=== PATIENT | female | born 1990 | race Caucasian/White ===

== ENCOUNTER 2016-03-05 13:12 | Emergency (ER) | payer OTHER ==
[2016-03-05 13:34] VITALS: BP 119/77
--- NOTE | 2016-03-05 13:53 | UC ---
Throat Pain/Nasal Ronal HPI - HPI Summary HPI Summary: complaint of dental pain -upper right jaw that started 3 days ago recently broke tooth 1 week ago pain in her tooth that radiates into her face started taking left over amoxicillin for 3 days which helped the pain but when she ran out pain returned taking ibuprofen and tylenol for pain without relief uses a lidocaine gel which worked for approx 30 minutes -complaint of cough that started 3 days ago nasal congestion productive cough denies sore throat, ear pain - taking ibuprofen without relief-hasn't needed inhaler during this illness - History of Current Complaint Chief Complaint: UCRespiratory Stated Complaint: COUGH,SINUSES,DENTAL COMPLAINT Time Seen by Provider: 03/05/16 13:13 Hx Obtained From: Patient Hx Last Menstrual Period: Feb - Allergies/Home Medications Allergies/Adverse Reactions: Allergies Allergy/AdvReac Type Severity Reaction Status Date / Time Bee Venom Allergy Anaphylatic Verified 03/05/16 13:34 Shock shrimp Allergy Anaphylatic Uncoded 03/05/16 13:34 Shock Home Medications: Home Medications Acetaminophen TAB* [Tylenol TAB*] 650 mg PO Q12HR PRN 03/05/16 [History Confirmed 03/05/16] PMH/Surg Hx/FS Hx/Imm Hx Previously Healthy: Yes Endocrine History Of: Denies: Diabetes Cardiovascular History Of: Denies: Cardiac Disorders Respiratory History Of: Reports: Asthma - Surgical History Surgical History: Yes Surgery Procedure, Year, and Place: right ankle with plates and screws 2013 - Family History Known Family History: Negative: Cardiac Disease, Hypertension, Diabetes - Social History Lives: With Family Alcohol Use: None Substance Use Type: None Smoking Status (MU): Never Smoked Tobacco Type: Cigarettes Amount Used/How Often: 3 cigarettes daily Review of Systems Constitutional: Negative Skin: Negative Eyes: Negative ENT: Dental Pain, Nasal Discharge Respiratory: Cough Cardiovascular: Negative Gastrointestinal: Negative Genitourinary: Negative Motor: Negative Neurovascular: Negative Musculoskeletal: Negative Neurological: Negative Psychological: Negative All Other Systems Reviewed And Are Negative: Yes Physical Exam Triage Information Reviewed: Yes Appearance: No Pain Distress, Well-Nourished Vital Signs: Initial Vital Signs Temp 98.6 F 03/05/16 13:22 Pulse 95 03/05/16 13:22 Resp 20 03/05/16 13:22 BP 119/77 03/05/16 13:22 Pulse Ox 98 03/05/16 13:22 Vital Signs Reviewed: Yes Eyes: Positive: Conjunctiva Clear ENT: Positive: Pharynx normal, Nasal congestion, TMs normal Dental: Positive: Dental Fracture @, Abscess @ - tooth 4 Neck: Positive: No Lymphadenopathy Respiratory: Positive: Lungs clear, Normal breath sounds, No respiratory distress Cardiovascular: Positive: RRR, No Murmur, Pulses Normal Abdomen Description: Positive: Nontender, Soft Bowel Sounds: Positive: Present Musculoskeletal: Positive: No Edema Neurological: Positive: Alert Psychological Exam: Normal Skin Exam: Normal Throat Pain/Nasal Course/Dx - Course Course Of Treatment: exam completed. will treat with antibioitcs nad narcotic pain medication d/t most of tooth is gone. followup with dentist - Differential Dx/Diagnosis Differential Diagnosis/HQI/PQRI: URI, Other - dental abscess Provider Diagnoses: dental abscess, fractured tooth, URI Discharge - Discharge Plan Condition: Stable Disposition: HOME Prescriptions: Amoxicillin/Clavulanate TAB* [Augmentin TAB 875*] 875 mg PO BID #20 tab oxyCODONE/Acetamin 5/325 MG* [Percocet 5/325 TAB*] 1 tab PO Q6H PRN #20 tab MDD 4 PRN Reason: Pain (Dental) Patient Education Materials: Acute Dental Trauma (ED), Upper Respiratory Infection (ED) Referrals: TREVIN Patten [Primary Care Provider] - Additional Instructions: Please call your dentist for followup and have your tooth removed start antibiotic as directed DENTAL ABSCESS What is a Dental Abscess? A dental abscess is an infection around the root of a tooth or in the gums or jawbone. The infection causes pus to collect, and a lump can appear. Dental abscesses often get their start when bacteria invade a decayed tooth; the decay may then travel to the gums or jawbone. Decay can also begin in the mouth when teeth are not brushed or flossed properly. Symptoms Might Include: In general, you'll start to have a fever, redness and swelling of the gums or cheek. If you have a lump it may feel hot. Other signs include tooth or mouth pain, a loose tooth, or not being able to close your mouth all the way. If the abscess spreads, your face, neck, or chest may swell. Treatment Recommendations: Rinse your mouth with warm water every hour or as needed to ease the pain. This will help draw the infection from the abscess. For pain, you may take non- prescription medicines such as acetaminophen (Tylenol) or ibuprofen (Motrin, Advil). To help ease the pain, do not chew on the sore side for at least 2 days; you may need to limit yourself to a liquid diet. Putting ice on your face over the affected area may also relieve the pain. Apply the ice for 10 to 20 minutes out of every hour. Do not leave the ice on for long periods or you can get frostbite. If the abscess is drained, there may be a small hole or drain. Keep the area free of food by rinsing with water after eating. You'll need to return or be seen by a dentist to have the drain removed. The healthcare provider may have prescribed an antibiotic medicine. The medicine should be taken until it is completely gone, even if you are feeling better. If you stop taking the medicine early, he infection may not be completely gone, and the medication may not work the next time. To prevent abscesses: [place] regularly with a toothbrush recommended by your dentist. Floss daily and use a fluoride mouthwash, toothpaste, tablets, or supplements as instructed by your dentist or dental hygienist. Reduce the amount of sugar in your diet. Call Your Doctor or Return Here IF: You have a high temperature Your pain becomes worse You have any new symptoms or problems that may be due to the medicine you are taking You have new or increased swelling in your face, jaw, cheek, eye, or neck You have any other new symptoms that worry you
== END 2016-03-05 14:26 | disposition home or self-care (01) ==
LOC: UCCORT 13:12
DX: K04.7 Periapical abscess without sinus (principal); S02.5XXA Fracture of tooth (traumatic), initial encounter for closed fracture; X58.XXXA Exposure to other specified factors, initial encounter; Y93.9 Activity, unspecified; Y92.9 Unspecified place or not applicable; J06.9 Acute upper respiratory infection, unspecified
CPT/HCPCS: 99212; G0463

== ENCOUNTER 2016-05-11 22:42 | Emergency (ER) | payer OTHER ==
[2016-05-11 22:48] VITALS: BP 155/83
[2016-05-11] MEDS ORDERED: oxyCODONE/Acetamin 5/325 MG* TAB PO ONE (23:24)
[2016-05-11] MEDS ORDERED: Penicillin VK TAB* 250 MG PO ONE (23:25)
[2016-05-11] MEDS ORDERED: Ketorolac INJ* 30 MG/ML 1 ML VIAL IM ONE (23:31)
--- NOTE | 2016-05-11 23:57 | ED ---
Throat Pain/Nasal Congestion - HPI Summary HPI Summary: 25F presents with dental pain today. She states that she broke her tooth while eating. The tooth is located on the upper right. She denies any swelling around the eye, pain with eye movement, fever, chest pain or SOB. She states she was suppose to have a root canal on the tooth in a month. She states she was on antibiotics for the tooth a week ago and took last dose two days ago. - History of Current Complaint Chief Complaint: EDDentalPain Time Seen by Provider: 05/11/16 23:14 - Allergies/Home Medications Allergies/Adverse Reactions: Allergies Allergy/AdvReac Type Severity Reaction Status Date / Time Bee Venom Allergy Anaphylatic Verified 05/11/16 22:48 Shock shrimp Allergy Anaphylatic Uncoded 05/11/16 22:48 Shock PMH/Surg Hx/FS Hx/Imm Hx Endocrine/Hematology History: Denies: Hx Diabetes Respiratory History: Reports: Hx Asthma - Surgical History Surgery Procedure, Year, and Place: right ankle with plates and screws 2013 Infectious Disease History: No Infectious Disease History: Denies: Traveled Outside the [place] in Last 30 Days - Family History Known Family History: Negative: Cardiac Disease, Hypertension, Diabetes - Social History Alcohol Use: None Substance Use Type: Reports: None Smoking Status (MU): Never Smoked Tobacco Type: Cigarettes Amount Used/How Often: 3 cigarettes daily Review of Systems Negative: Fever Positive: Dental Pain Negative: Chest Pain Negative: Shortness Of Breath All Other Systems Reviewed And Are Negative: Yes Physical Exam Triage Information Reviewed: Yes Vital Signs On Initial Exam: Initial Vitals Temp Pulse Resp BP Pulse Ox 97.4 F 96 15 155/83 100 05/11/16 22:43 05/11/16 22:43 05/11/16 22:43 05/11/16 22:43 05/11/16 22:43 Vital Signs Reviewed: Yes Appearance: Positive: Well-Appearing Skin: Positive: Warm, Dry Head/Face: Positive: Normal Head/Face Inspection Eyes: Positive: Normal, Conjunctiva Clear ENT: Positive: Normal ENT inspection, Pharynx normal, TMs normal Dental: Positive: Percussion Tenderness @ - 15, Gross Decay/Caries @ - 15. Negative: Abscess @, Bleeding Neck: Positive: Supple, Nontender, No Lymphadenopathy Respiratory/Lung Sounds: Positive: Clear to Auscultation, Breath Sounds Present Cardiovascular: Positive: Normal, RRR Procedures - Procedure Summary Procedure Summary: dental filling cleaned area, used cetacaine to numb, placed temporary filling in tooth 15, patient tolerated procedure well Diagnostics - Vital Signs Vital Signs Temp Pulse Resp BP Pulse Ox 05/11/16 22:43 97.4 F 96 15 155/83 100 - Laboratory Lab Statement: Any lab studies that have been ordered have been reviewed, and results considered in the medical decision making process. EENT Course/Dx - Course Course Of Treatment: 25F presents with dental pain today. states that broke tooth today. states is suppose to have root canal next month. discussed that could place a temporary filling in tooth and patient agrees. placed filling in tooth 16. patient tolerated procedure well. prescribed antibiotics to take for next 7 days and ibuprofen. told to follow up with dentist as soon as can. patient understands and agrees with plan - Differential Diagnoses Differential Diagnoses: Dental Abscess, Dental Caries, Fractured Tooth - Diagnoses Provider Diagnoses: Pain, dental Discharge - Discharge Plan Condition: Guarded Disposition: HOME Prescriptions: Ibuprofen TAB* [Motrin TAB* 800 MG] 800 mg PO Q6H #20 tab Penicillin VK TAB* [Penicillin VK 250 mg Tab*] 500 mg PO QID #27 tab Patient Education Materials: Toothache (ED) Referrals: TREVIN Patten [Primary Care Provider] - Additional Instructions: Take antibiotics: 4 times a day for 7 days, first dose given in ED Use ibuprofen every 6 hours Avoid hard, crunchy food until seen by dentist Dental filling is temporary and will fall out Follow up with dentist as soon as possible Return to ED if develop fever, shortness of breath, pain with eye movement or swelling around eye
== END 2016-05-12 00:51 | disposition home or self-care (01) ==
LOC: ED 22:42
DX: K08.89 Other specified disorders of teeth and supporting structures (principal); J45.909 Unspecified asthma, uncomplicated; F17.210 Nicotine dependence, cigarettes, uncomplicated
CPT/HCPCS: 96372; 99282; A9270-GY; J1885

== ENCOUNTER 2017-04-17 22:18 | Emergency (ER) | payer OTHER ==
[2017-04-17] MEDS ORDERED: Penicillin VK TAB* 250 MG PO ONE (22:51)
[2017-04-17] MEDS ORDERED: Ketorolac INJ* 60 MG/2 ML VIAL IM ONE (22:51)
--- NOTE | 2017-04-17 22:54 | ED ---
Throat Pain/Nasal Congestion - HPI Summary HPI Summary: 26 year female presents with dental pain for the past couple days. She has been taking Tylenol without relief. She has a dentist appointment on next Friday. She has history of old fractures and cavities of teeth. She denies any drainage from her teeth. She denies any swelling around her eyes. She denies any pain with eye movement. She denies any chest pain or shortness of breath. She denies any fevers. She is not currently on antibiotic. She has no medical conditions. - History of Current Complaint Chief Complaint: EDDentalPain Time Seen by Provider: 04/17/17 22:35 - Allergies/Home Medications Allergies/Adverse Reactions: Allergies Allergy/AdvReac Type Severity Reaction Status Date / Time morphine Allergy Rash And Verified 04/17/17 22:24 Itching MS Bee Venom [Bee Venom] Allergy Anaphylatic Verified 05/11/16 22:48 Shock shrimp Allergy Anaphylatic Uncoded 05/11/16 22:48 Shock PMH/Surg Hx/FS Hx/Imm Hx Endocrine/Hematology History: Denies: Hx Anticoagulant Therapy, Hx Blood Disorders, Hx Diabetes Respiratory History: Reports: Hx Asthma History: Reports: Other Problems/Disorders - multiple miscarriages Psychiatric History: Reports: Other Psychiatric Issues/Disorders - unknown etiology - follows w/ [facility] - Surgical History Surgery Procedure, Year, and Place: right ankle with plates and screws 2013 Infectious Disease History: No Infectious Disease History: Denies: Traveled Outside the [place] in Last 30 Days - Family History Known Family History: Negative: Cardiac Disease, Hypertension, Diabetes - Social History Alcohol Use: None Substance Use Type: Reports: None Smoking Status (MU): Never Smoked Tobacco Type: Cigarettes Amount Used/How Often: 3 cigarettes daily Review of Systems Negative: Fever Positive: Dental Pain Negative: Chest Pain Negative: Shortness Of Breath All Other Systems Reviewed And Are Negative: Yes Physical Exam Triage Information Reviewed: Yes Vital Signs On Initial Exam: Initial Vitals Temp Pulse Resp BP Pulse Ox 97.6 F 95 18 149/78 100 04/17/17 22:24 04/17/17 22:24 04/17/17 22:24 04/17/17 22:24 04/17/17 22:24 Vital Signs Reviewed: Yes Appearance: Positive: Well-Appearing Skin: Positive: Warm, Dry Head/Face: Positive: Normal Head/Face Inspection Eyes: Positive: Normal, EOMI, NICOLE, Conjunctiva Clear ENT: Positive: Normal ENT inspection, Pharynx normal, TMs normal Dental: Positive: Percussion Tenderness @ - 5 and 25, Gross Decay/Caries @ - throughout, Dental Fracture @ - throughout. Negative: Abscess @ Neck: Positive: Supple, Nontender, No Lymphadenopathy Respiratory/Lung Sounds: Positive: Clear to Auscultation, Breath Sounds Present Cardiovascular: Positive: Normal, RRR Musculoskeletal: Positive: Normal Neurological: Positive: Normal Psychiatric: Positive: Normal Diagnostics - Vital Signs Vital Signs Temp Pulse Resp BP Pulse Ox 04/17/17 22:24 97.6 F 95 18 149/78 100 - Laboratory Lab Statement: Any lab studies that have been ordered have been reviewed, and results considered in the medical decision making process. EENT Course/Dx - Course Course Of Treatment: 26 year female presents with dental pain for the past couple days. She has been taking Tylenol without relief. She has a dentist appointment on next Friday. She has history of old fractures and cavities of teeth. She denies any drainage from her teeth. She denies any swelling around her eyes. She denies any pain with eye movement. She denies any chest pain or shortness of breath. She denies any fevers. She is not currently on antibiotic. She has no medical conditions. On exam tenderness to 5 and 25. Will start on penicillin. Will give a prescription for ibuprofen. Patient understands and agrees the plan. - Differential Diagnoses Differential Diagnoses: Dental Abscess, Dental Caries, Fractured Tooth - Diagnoses Provider Diagnoses: Dental infection Discharge - Discharge Plan Condition: Good Disposition: HOME Prescriptions: Ibuprofen TAB* [Motrin TAB* 600 MG] 600 mg PO Q8H PRN #20 tab PRN Reason: Pain Penicillin VK TAB* [Penicillin VK 250 mg Tab*] 500 mg PO QID #27 tab Patient Education Materials: Toothache (ED) Referrals: TREVIN Patten [Primary Care Provider] - Additional Instructions: Take antibiotics: 4 times a day for 7 days, first dose given in ED Use ibuprofen every 6 hours Avoid hard, crunchy food until seen by dentist Follow up with dentist as soon as possible Return to ED if develop fever, shortness of breath, pain with eye movement or swelling around eye Images - Images Dental: 1 - pain 2 - pain
[2017-04-17 23:05] VITALS: BP 144/78
== END 2017-04-17 23:04 | disposition home or self-care (01) ==
LOC: ED 22:18
DX: K04.7 Periapical abscess without sinus (principal); F17.210 Nicotine dependence, cigarettes, uncomplicated; Z88.5 Allergy status to narcotic agent
CPT/HCPCS: 96372; 99282; A9270-GY; J1885

== ENCOUNTER 2018-06-03 19:27 | Emergency (ER) | payer OTHER ==
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
[2018-06-03] MEDS: NS 0.9% 1000 ML** 1,000 ML IV ONE (20:57)
[2018-06-03] MEDS: fentaNYL* 50 MCG/ML 2 ML VIAL (100 MCG VIAL) IV SLOW PU ONE (20:58)
[2018-06-03] MEDS: Metoclopramide IV* 5 MG/ML 2 ML VIAL IV ONE (20:59)
[2018-06-03] MEDS: diPHENhydraMINE IV* 50 MG in NS 0.9% 50 ML* 50 ML IVPB ONE (21:00)
[2018-06-03] MEDS: Ketorolac INJ* 30 MG/ML 1 ML VIAL IV PUSH ONE ×2 (21:36→23:02)
[2018-06-03 21:45] VITALS: BP 128/80
[2018-06-03 21:52] LABS: Hematocrit 38 % (33-41); Hemoglobin 12.6 g/dL (12.0-16.0); Mean Corpuscular HGB Conc 33 g/dL (31-36); Mean Corpuscular Hemoglobin 28 pg (27-31); Mean Corpuscular Volume 86 fL (80-97); Red Blood Count 4.44 10^6 /uL (3.70-4.87); Red Cell Distribution Width 15 % (10.5-15); White Blood Count 10.5 10^3/uL (3.5-10.8)
--- NOTE | 2018-06-03 21:54 | ED ---
Progress - Progress Note Progress Note: This patient was signed out from Dr. Lopez to Dr. Santamaria at 22:[address] and Abdomen/Pelvis CT. Brain CT impression: No acute intracranial abnormality. ED physician has reviewed this imaging report. CXR impression: No acute process. Pending official imaging report. Abdomen/pelvis CT impression: 1. No acute abnormality 2. 2.5 cm focus of right hepatic enhancement, indeterminate. Correlation with hepatic protocol MRI may be considered. ED physician has reviewed this imaging report. The patient will be discharged and is agreeable with this plan. Re-Evaluation - Re-Evaluation First Eval Re-Evaluation Time: 00:20 Change: Improved Comment: Discussed results. Patient is feeling better and ready for discharge. Course/Dx - Course Course Of Treatment: This patient was signed out from Dr. Lopez to Dr. Santamaria at 22:[address] and Abdomen/Pelvis CT. Brain CT impression: No acute intracranial abnormality. ED physician has reviewed this imaging report. CXR impression: No acute process. Pending official imaging report. Abdomen/ pelvis CT impression: 1. No acute abnormality. 2. 2.5 cm focus of right hepatic enhancement, indeterminate. Correlation with. hepatic protocol MRI may be considered. ED physician has reviewed this imaging report. The patient will be discharged and is agreeable with this plan. - Diagnoses Provider Diagnoses: Abdominal pain Discharge - Sign-Out/Discharge Documenting (check all that apply): Patient Departure - DC Patient Received Moderate/Deep Sedation with Procedure: No - Discharge Plan Condition: Stable Disposition: HOME Patient Education Materials: Abdominal Pain (ED) Referrals: [facility] [Outside] (1-3 days) Additional Instructions: PLEASE RETURN TO THE ED IMMEDIATELY FOR WORSENING OR CONCERNING SYMPTOMS - Attestation Statements Document Initiated by Scribe: Yes Documenting Scribe: Esteban Oconnell Provider For Whom Scribe is Documenting (Include Credential): Branden Santamaria MD Scribe Attestation: Esteban Coreas, scribed for Branden Santamaria MD on 06/04/18 at 0018. Status of Scribe Document: Ready
[2018-06-03 22:01] LABS: ALT 36 U/L (7-52); AST 21 U/L (13-39); Albumin 4.1 g/dL (3.2-5.2); Albumin/Globulin Ratio 1.4 (1-3); Alkaline Phosphatase 65 U/L (34-104); Anion Gap 8 mmol/L (2-11); BUN/Creatinine Ratio 19.3 (8-20); Blood Urea Nitrogen 11 mg/dL (6-24); C Reactive Protein 31.34 mg/L (<8.01); CO2 Carbon Dioxide 22 mmol/L (22-32); Calcium 8.5 mg/dL (8.6-10.3); Chloride 105 mmol/L (101-111); EGFR African American 151.7 (>60); EGFR Non-African American 125.4 (>60); Globulin 2.9 g/dL (2-4); Glucose 91 mg/dL (70-100); Potassium 3.6 mmol/L (3.5-5.0); Sodium 135 mmol/L (135-145)
[2018-06-03 22:07] LABS: HCG Pregnancy < 0.60 mIU/mL
[2018-06-03 22:10] LABS: Influenza A Molecular NEGATIVE (Negative); Influenza B Molecular NEGATIVE (Negative)
[2018-06-03 22:11] LABS: ABS Basophils 0 10^3/ul (0-0.2); ABS Eosinophils 0.1 10^3/ul (0-0.6); ABS Lymphocytes 0.8 10^3/ul (1.0-4.8); ABS Monocytes 0.6 10^3/ul (0-0.8); ABS Nucleated RBC 0 10^3/ul; Eosinophil % 0.5 %; Mean Platelet Volume 8.3 fL (7.4-10.4); Nucleated Red Blood Cells % 0; Platelet Count 209 10^3/uL (150-450)
[2018-06-03] MEDS: Iohexol 300* (CONTRAST) 10 ML SDV IV ONE (22:27)
== END 2018-06-04 00:22 | disposition home or self-care (01) ==
LOC: ED 19:27
DX: R07.9 Chest pain, unspecified (principal); R10.9 Unspecified abdominal pain; F17.210 Nicotine dependence, cigarettes, uncomplicated; Z88.5 Allergy status to narcotic agent
CPT/HCPCS: 36415; 70450; 71045; 74177; 80053; 83605; 83690; 84484; 84702; 85025; 85379; 86140; 93005; 96361; 96374; 96375; 99283; J1200; J1885; J2765; J3010; Q9967

== ENCOUNTER 2018-09-14 21:11 | Emergency (ER) | payer SELFPAY ==
[2018-09-14 21:31] VITALS: BP 128/95
--- NOTE | 2018-09-14 21:42 | UC ---
Lower Extremity/Ankle HPI - HPI Summary HPI Summary: Patient is a 27-year-old female who presents to the urgent care with a chief complaint of right ankle and right knee pain. The patient reports that if he tonight approximately 4 PM the patient fell on steps and since then the patient is having pain. The pain is 6-8 out of 10. Denies any nausea vomiting has no other complaints. Patient denies any trauma to the head or neck. The patient has her menstrual cycle today. - History of Current Complaint Chief Complaint: UCLowerExtremity Stated Complaint: KNEE INJURY AND SORE THROAT Time Seen by Provider: 09/14/18 21:23 Hx Obtained From: Patient Hx Last Menstrual Period: now ?: No Onset/Duration: Sudden Onset Pain Intensity: 8 - Allergies/Home Medications Allergies/Adverse Reactions: Allergies Allergy/AdvReac Type Severity Reaction Status Date / Time bee venom protein (honey bee) Allergy Anaphylatic Verified 09/14/18 21:32 Shock morphine Allergy Rash And Verified 09/14/18 21:32 Itching shrimp Allergy Anaphylatic Uncoded 09/14/18 21:32 Shock PMH/Surg Hx/FS Hx/Imm Hx Previously Healthy: Yes Other History Of: Negative For: Anticoagulant Therapy - Surgical History Surgical History: Yes Surgery Procedure, Year, and Place: right ankle with plates and screws 2013. tubal ligation 2018 - Family History Known Family History: Positive: Blood Disorder - blood clots Negative: Cardiac Disease, Hypertension, Diabetes - Social History Alcohol Use: Occasionally Substance Use Type: None Smoking Status (MU): Light Every Day Tobacco Smoker Type: Cigarettes Amount Used/How Often: 3 cigarettes daily Review of Systems All Other Systems Reviewed And Are Negative: Yes Constitutional: Positive: Negative Skin: Positive: Negative Eyes: Positive: Negative ENT: Positive: Negative Respiratory: Positive: Negative Cardiovascular: Positive: Negative Gastrointestinal: Positive: Negative Genitourinary: Positive: Negative Motor: Positive: Negative Neurovascular: Positive: Negative Musculoskeletal: Positive: Other: - Right ankle and right knee pain Neurological: Positive: Negative Psychological: Positive: Negative Is Patient Immunocompromised?: No Physical Exam - Summary Physical Exam Summary: VITAL SIGNS: Reviewed. GENERAL: Patient is a well developed and nourished female who is lying comfortably in the stretcher. Patient is not in any acute respiratory distress. HEAD AND FACE: No signs of trauma. No ecchymosis, hematomas or skull depressions. No sinus tenderness. EYES: PERRLA, EOMI x 2, No injected conjunctiva, no nystagmus. EARS: Hearing grossly intact. Ear canals and tympanic membranes are within normal limits. MOUTH: Oropharynx within normal limits. NECK: Supple, trachea is midline, no adenopathy, no JVD, no carotid bruit, no c- spine tenderness, neck with full ROM. CHEST: Symmetric, no tenderness at palpation LUNGS: Clear to auscultation bilaterally. No wheezing or crackles. CVS: Regular rate and rhythm, S1 and S2 present, no murmurs or gallops appreciated. ABDOMEN: Soft, non-tender. No signs of distention. No rebound no guarding, and no masses palpated. Bowel sounds are normal. EXTREMITIES: Right knee with no deformity, full range of motion, no ecchymosis, no hematomas. Right ankle. A surgical scar which is well-healed. Has is slight swelling in the right lateral malleolus. Decreased range of motion secondary to pain. Good pulses and good capillary refill. NEURO: Alert and oriented x 3. No acute neurological deficits. Speech is normal and follows commands. SKIN: Dry and warm Triage Information Reviewed: Yes Appearance: Well-Appearing Vital Signs: Initial Vital Signs Temp 99.4 F 09/14/18 21:23 Pulse 94 09/14/18 21:23 Resp 18 09/14/18 21:23 BP 128/95 09/14/18 21:23 Pulse Ox 98 09/14/18 21:23 Vital Signs Reviewed: Yes Lower Extremity Course/Dx - Course Course Of Treatment: X-ray of the knee impression: No acute fracture X-ray of the ankle and foot impression: No acute fracture. Screw migrational is noted. However I would place the patient in a Boot Camp for precautions and follow-up with orthopedics. Bear weight as tolerated. Ibuprofen for pain. His symptoms worsen return to the urgent care or go to the emergency department for further workup and management. - Differential Dx/Diagnosis Provider Diagnosis: Ankle pain, Knee pain Discharge - Sign-Out/Discharge Documenting (check all that apply): Patient Departure All imaging exams completed and their final reports reviewed: Yes - Discharge Plan Condition: Stable Disposition: HOME Referrals: [facility] [place] [facility] [Outside] No Primary Care Phys,NOPCP [Primary Care Provider] - Alberto Tavera MD [Medical Doctor] - Additional Instructions: Take medications as instructed Increase your fluid intake F/U with PCP in the next 2-3 days Return to the UC if symptoms worsen - Billing Disposition and Condition Condition: STABLE Disposition: Home
== END 2018-09-14 22:30 | disposition home or self-care (01) ==
LOC: UCEAST 21:11
DX: M25.571 Pain in right ankle and joints of right foot (principal); M25.561 Pain in right knee; F17.210 Nicotine dependence, cigarettes, uncomplicated; Z88.5 Allergy status to narcotic agent
CPT/HCPCS: 99211; G0463

== ENCOUNTER 2019-01-01 20:32 | Emergency (ER) | payer SELFPAY ==
[2019-01-01 21:20] VITALS: BP 110/71
--- NOTE | 2019-01-01 21:32 | UC ---
Pediatric Resp HPI - HPI Summary HPI Summary: Per mine analyst: "Rhinitis, congestion, vomiting, diarrhea x 1 wk." -here with her 2 sick sons w/ same sx. male friend is in waiting room, who is not ill. -sx x 1.5 yrs on/off. + asthma. ramn out of albuterol a while ago. continues to smoke 2 ciggs per day. -denies wheezing. feels liek most of her symptoms are the congestion in her throat. no sinus pain -no fevers -has been to several drs, PCP, UC and have been told its' allergies. doesnt understand why they all keep getting sick. -no sinus pain. no abd crmaping. denies pregancy -requests OOW note tonight. - History Of Current Complaint Chief Complaint: UCGeneralIllness Stated Complaint: COUGH Time Seen by Provider: 01/01/19 21:24 - Allergies/Home Medications Allergies/Adverse Reactions: Allergies Allergy/AdvReac Type Severity Reaction Status Date / Time bee venom protein (honey bee) Allergy Anaphylatic Verified 01/01/19 21:15 Shock morphine Allergy Rash And Verified 01/01/19 21:15 Itching shrimp Allergy Anaphylatic Uncoded 01/01/19 21:15 Shock Past Medical History Previously Healthy: Yes Respiratory History: Yes: Hx Asthma Chronic Illness History: No: Diabetes Review Of Systems All Other Systems Reviewed And Are Negative: Yes Constitutional: Positive: Fever Eyes: Positive: Negative ENT: Positive: Other - nasal congestion. stuffy nose Cardiovascular: Positive: Negative Respiratory: Positive: Cough, Wheezing Gastrointestinal: Positive: Vomiting - mucous, Diarrhea Genitourinary: Positive: Negative Musculoskeletal: Positive: Negative Skin: Positive: Negative Neurological: Positive: Negative Psychological: Positive: Negative Physical Exam Triage Information Reviewed: Yes Vital Signs: Initial Vital Signs Temp 99.9 F 01/01/19 21:16 Pulse 85 01/01/19 21:16 Resp 14 01/01/19 21:16 BP 110/71 01/01/19 21:16 Pulse Ox 99 01/01/19 21:16 Vital Signs Reviewed: Yes Appearance: Well-Appearing, No Pain Distress, Ill-Appearing - mild Eyes: Positive: Normal ENT: Positive: Pharynx normal - + PND, Nasal congestion, Nasal drainage, TMs normal, Uvula midline. Negative: TM bulging, TM dull, TM red, Tonsillar swelling, Tonsillar exudate, Sinus tenderness Neck: Positive: Supple, Nontender, No Lymphadenopathy Respiratory: Positive: Chest non-tender, Lungs clear, Normal breath sounds, No respiratory distress, No accessory muscle use. Negative: Crackles, Rhonchi, Stridor, Wheezing Cardiovascular: Positive: Normal, RRR, No Murmur, Brisk Capillary Refill Abdomen Description: Positive: Nontender. Negative: CVA Tenderness (R), CVA Tenderness (L), Distended, Guarding Musculoskeletal: Positive: Normal Neurological: Positive: Normal Psychological: Positive: Normal Pediatric Resp Course/Dx - Course Course Of Treatment: here w/ her 2 sons. male friend is in waiting room. -sons have same sx and dx'd w/ viral cold -she has asthma - prescribed RF of albuterol - use q 4-6 hrs prn cough -APAP/ALISE pain/fever/discomfort -humidier, suportaive treatment -f/u sooner if sx increase or persist. - Differential Dx/Diagnosis Differential Diagnosis/HQI/PQRI: Asthma, Croup, Pneumonia, Sinusitis, URI Provider Diagnosis: Common cold Discharge ED - Sign-Out/Discharge Documenting (check all that apply): Patient Departure All imaging exams completed and their final reports reviewed: No Studies - Discharge Plan Condition: Stable Disposition: HOME Prescriptions: Albuterol HFA INHALER* [Ventolin HFA Inhaler*] 1 - 2 puff INH Q4H PRN #1 mdi PRN Reason: Shortness Of Breath Patient Education Materials: Asthma (ED), Upper Respiratory Infection (DC) Forms: *Work Release Referrals: No Primary Care Phys,NOPCP [Primary Care Provider] - - Billing Disposition and Condition Condition: STABLE Disposition: Home
== END 2019-01-01 21:50 | disposition home or self-care (01) ==
LOC: UCCORT 20:32
DX: J00 Acute nasopharyngitis [common cold] (principal); Z91.030 Bee allergy status; Z88.5 Allergy status to narcotic agent; Z91.013 Allergy to seafood
CPT/HCPCS: 99212; G0463

== ENCOUNTER 2019-01-05 20:29 | Emergency (ER) | payer SELFPAY ==
--- OUTSIDE RECORDS SUMMARY | 2019-01-05 20:57 | XMS REPORT | Continuity of Care Document ---
:1990 External Reference #:[id number] Author Name Bernardino Lynch MD (transmitted by agent of provider Alexandrea Jackson) Address [address] [place] [address] Care Team Providers Name Role Phone Patient's Choice Care Team Information Jtac Unavailable Problems Active Problems Provider Date Sprain of ankle Bernardino Lynch MD Onset: 11/13/2018 Social History Type Date Description Comments Sex Unknown ETOH Use Denies alcohol use Tobacco Use Start: Unknown Light tobacco smoker (10 or fewer cigarettes/day) Smoking Status Reviewed: 11/13/18 Light tobacco smoker (10 or fewer cigarettes/day) Exercise Type/Frequency Exercises regularly Allergies, Adverse Reactions, Alerts Active Allergies Reaction Severity Comments Date Morphine 11/13/2018 Medications Description No Active Medications Immunizations Description No Information Available Vital Signs Date Vital Result Comment 11/13/2018 10:46am Height 65 inches 5'5" Weight 211.00 lb Heart Rate 88 /min BP Systolic 124 mmHg BP Diastolic 76 mmHg BMI (Body Mass Index) 35.1 kg/m2 Results Description No Information Available Procedures Description No Information Available Medical Devices Description No Information Available Encounters Description No Information Available Assessments Date Code Description Provider 11/13/2018 [id number] Sprain of other ligament of right ankle, Bernardino Lynch MD initial encounter Plan of Treatment Future Appointment(s):01/15/2019 10:45 am - Bernardino Lynch MD at [facility]11/13/2018 - RUIZ [id number] Sprain of other ligament of right ankle, initial encounterNew Therapy:Physical TherapyFollow up: Follow Up: 2 months Functional Status Description No Information Available Mental Status Description No Information Available Referrals Description No Information Available
[2019-01-05 22:07] LABS: ABS Basophils 0.1 10^3/ul (0-0.2); ABS Eosinophils 0.3 10^3/ul (0-0.6); ABS Lymphocytes 1.9 10^3/ul (1.0-4.8); ABS Monocytes 0.7 10^3/ul (0-0.8); ABS Neutrophils 5.6 10^3/ul (1.5-7.7); Eosinophil % 3.3 %; Hematocrit 40 % (35-47); Hemoglobin 13.3 g/dL (12.0-16.0); Lymphocyte % 22.5 %; Mean Corpuscular HGB Conc 33 g/dL (31-36); Mean Corpuscular Hemoglobin 29 pg (27-31); Mean Corpuscular Volume 88 fL (80-97); Mean Platelet Volume 7.9 fL (7.4-10.4); Platelet Count 343 10^3/uL (150-450); Red Blood Count 4.53 10^6 /uL (3.70-4.87); Red Cell Distribution Width 14 % (10-15); White Blood Count 8.5 10^3/uL (3.5-10.8)
[2019-01-05 22:14] LABS: INR 1.11 (0.82-1.09)
[2019-01-05 22:28] LABS: ALT 26 U/L (7-52); AST 18 U/L (13-39); Albumin 4.4 g/dL (3.2-5.2); Albumin/Globulin Ratio 1.5 (1-3); Alkaline Phosphatase 73 U/L (34-104); Anion Gap 9 mmol/L (2-11); Blood Urea Nitrogen 9 mg/dL (6-24); C Reactive Protein 8.23 mg/L (<8.01); CO2 Carbon Dioxide 24 mmol/L (22-32); Calcium 9.1 mg/dL (8.6-10.3); Chloride 106 mmol/L (101-111); EGFR African American 120.9 (>60); EGFR Non-African American 99.9 (>60); Glucose 111 mg/dL (70-100); Potassium 3.6 mmol/L (3.5-5.0); Sodium 139 mmol/L (135-145); Total Protein 7.4 g/dL (6.4-8.9)
[2019-01-05 22:37] LABS: HCG Pregnancy < 0.60 mIU/mL
[2019-01-05 23:20] VITALS: BP 132/82
[2019-01-05] MEDS ORDERED: Benzonatate CAP* 100 MG PO ONE (23:32)
--- NOTE | 2019-01-05 23:32 | ED ---
Respiratory - HPI Summary HPI Summary: Patient complains of cough, subjective fever, SOB, congestion, vomiting, body aches times a few days. Seen at urgent care 3 days ago with similar symptoms. Diagnosed with viral syndrome, negative chest x-ray. Patient has history of asthma, uses her inhaler with mild improvement in symptoms. Denies sore throat , headache, neck stiffness, CP, abdominal pain, change in urine, change in BM. Medical medical history is asthma. Positive smoker - History of Current Complaint Chief Complaint: EDFluSymptoms Stated Complaint: GENERAL ILLNESS,SOB PER PT Time Seen by Provider: 01/05/19 23:15 Hx Obtained From: Patient Onset/Duration: Gradual Onset, Lasting Days Current Severity: None Pain Intensity: 0 Character: Cough (Productive) Sputum Color: Yellow Alleviating Factor(s): MDI (Frequency Of Use) Associated Signs and Symptoms: Chest Pain with Cough, Nasal Congestion - Allergy/Home Medications Allergies/Adverse Reactions: Allergies Allergy/AdvReac Type Severity Reaction Status Date / Time bee venom protein (honey bee) Allergy Anaphylatic Verified 01/05/19 20:41 Shock morphine Allergy Rash And Verified 01/05/19 20:41 Itching shrimp Allergy Anaphylatic Uncoded 01/05/19 20:41 Shock PMH/Surg Hx/FS Hx/Imm Hx Endocrine/Hematology History: Denies: Hx Anticoagulant Therapy, Hx Blood Disorders - blood clots, Hx Diabetes Cardiovascular History: Denies: Hx Hypertension Respiratory History: Reports: Hx Asthma History: Reports: Other Problems/Disorders - multiple miscarriages Sensory History: Denies: Hx Eye Prosthesis Opthamlomology History: Denies: Hx Legally Blind EENT History: Denies: Hx Deafness Neurological History: Reports: Hx Migraine - while Psychiatric History: Reports: Other Psychiatric Issues/Disorders - unknown etiology - follows w/ [facility] - Surgical History Surgery Procedure, Year, and Place: right ankle with plates and screws 2013. tubal ligation 2018 Infectious Disease History: No Infectious Disease History: Denies: Traveled Outside the [place] in Last 30 Days - Family History Known Family History: Positive: Blood Disorder - blood clots Negative: Cardiac Disease, Hypertension, Diabetes - Social History Alcohol Use: None Hx Substance Use: No Substance Use Type: Reports: None Hx Tobacco Use: Yes Smoking Status (MU): Light Every Day Tobacco Smoker Type: Cigarettes Amount Used/How Often: 2 cigarettes daily Review of Systems Positive: Fever Eyes: Negative Positive: Nasal Discharge Cardiovascular: Negative Positive: Shortness Of Breath, Cough Positive: Nausea Genitourinary: Negative Positive: Myalgia Skin: Negative Neurological: Negative Psychological: Normal All Other Systems Reviewed And Are Negative: Yes Physical Exam Triage Information Reviewed: Yes Vital Signs On Initial Exam: Initial Vitals Temp Pulse Resp BP Pulse Ox 99.7 F 94 18 128/84 100 01/05/19 20:40 01/05/19 20:40 01/05/19 20:40 01/05/19 20:40 01/05/19 20:40 Vital Signs Reviewed: Yes Appearance: Positive: Well-Appearing Skin: Positive: Warm Head/Face: Positive: Normal Head/Face Inspection Eyes: Positive: Normal ENT: Positive: Normal ENT inspection Neck: Positive: Supple Respiratory/Lung Sounds: Positive: Clear to Auscultation Cardiovascular: Positive: Normal Abdomen Description: Positive: Nontender Musculoskeletal: Positive: Normal Neurological: Positive: Normal Psychiatric: Positive: Normal AVPU Assessment: Alert - Salomon Coma Scale Best Eye Response: 4 - Spontaneous Best Motor Response: 6 - Obeys Commands Best Verbal Response: 5 - Oriented Coma Scale Total: 15 Procedures - Sedation Patient Received Moderate/Deep Sedation with Procedure: No Diagnostics - Vital Signs Vital Signs Temp Pulse Resp BP Pulse Ox 01/05/19 23:16 77 132/82 100 01/05/19 23:15 84 100 01/05/19 22:48 99.7 F 91 18 126/83 98 01/05/19 20:40 99.7 F 94 18 128/84 100 - Laboratory Lab Results: Lab Results 01/05/19 01/05/19 01/05/19 Range/Units 21:58 21:58 21:58 WBC 8.5 (3.5-10.8) 10^3/uL RBC 4.53 (3.70-4.87) 10^6 /uL Hgb 13.3 (12.0-16.0) g/dL Hct 40 (35-47) % MCV 88 (80-97) fL MCH 29 (27-31) pg MCHC 33 (31-36) g/dL RDW 14 (10-15) % Plt Count 343 (150-450) 10^3/uL MPV 7.9 (7.4-10.4) fL Neut % (Auto) 65.2 % Lymph % (Auto) 22.5 % [place] % (Auto) 8.4 % Eos % (Auto) 3.3 % Baso % (Auto) 0.6 % Absolute Neuts (auto) 5.6 (1.5-7.7) 10^3/ul Absolute Lymphs (auto) 1.9 (1.0-4.8) 10^3/ul Absolute Monos (auto) 0.7 (0-0.8) 10^3/ul Absolute Eos (auto) 0.3 (0-0.6) 10^3/ul Absolute Basos (auto) 0.1 (0-0.2) 10^3/ul Absolute Nucleated RBC 0.0 10^3/ul Nucleated RBC % 0.0 INR (Anticoag Therapy) 1.11 H (0.82-1.09) Sodium 139 (135-145) mmol/L Potassium 3.6 (3.5-5.0) mmol/L Chloride 106 (101-111) mmol/L Carbon Dioxide 24 (22-32) mmol/L Anion Gap 9 (2-11) mmol/L BUN 9 (6-24) mg/dL Creatinine 0.69 (0.51-0.95) mg/dL Est GFR ( Amer) 120.9 (>60) Est GFR (Non-Af Amer) 99.9 (>60) BUN/Creatinine Ratio 13.0 (8-20) Glucose 111 H (70-100) mg/dL Lactic Acid (0.5-2.0) mmol/L Calcium 9.1 (8.6-10.3) mg/dL Total Bilirubin 0.30 (0.2-1.0) mg/dL AST 18 (13-39) U/L ALT 26 (7-52) U/L Alkaline Phosphatase 73 (34-104) U/L C-Reactive Protein 8.23 H (<8.01) mg/L Total Protein 7.4 (6.4-8.9) g/dL Albumin 4.4 (3.2-5.2) g/dL Globulin 3.0 (2-4) g/dL Albumin/Globulin Ratio 1.5 (1-3) Beta HCG, Quant < 0.60 mIU/mL Influenza A (Rapid) Influenza B (Rapid) 01/05/19 01/05/19 Range/Units 21:58 23:15 WBC (3.5-10.8) 10^3/uL RBC (3.70-4.87) 10^6 /uL Hgb (12.0-16.0) g/dL Hct (35-47) % MCV (80-97) fL MCH (27-31) pg MCHC (31-36) g/dL RDW (10-15) % Plt Count (150-450) 10^3/uL MPV (7.4-10.4) fL Neut % (Auto) % Lymph % (Auto) % [place] % (Auto) % Eos % (Auto) % Baso % (Auto) % Absolute Neuts (auto) (1.5-7.7) 10^3/ul Absolute Lymphs (auto) (1.0-4.8) 10^3/ul Absolute Monos (auto) (0-0.8) 10^3/ul Absolute Eos (auto) (0-0.6) 10^3/ul Absolute Basos (auto) (0-0.2) 10^3/ul Absolute Nucleated RBC 10^3/ul Nucleated RBC % INR (Anticoag Therapy) (0.82-1.09) Sodium (135-145) mmol/L Potassium (3.5-5.0) mmol/L Chloride (101-111) mmol/L Carbon Dioxide (22-32) mmol/L Anion Gap (2-11) mmol/L BUN (6-24) mg/dL Creatinine (0.51-0.95) mg/dL Est GFR ( Amer) (>60) Est GFR (Non-Af Amer) (>60) BUN/Creatinine Ratio (8-20) Glucose (70-100) mg/dL Lactic Acid 2.2 H* (0.5-2.0) mmol/L Calcium (8.6-10.3) mg/dL Total Bilirubin (0.2-1.0) mg/dL AST (13-39) U/L ALT (7-52) U/L Alkaline Phosphatase (34-104) U/L C-Reactive Protein (<8.01) mg/L Total Protein (6.4-8.9) g/dL Albumin (3.2-5.2) g/dL Globulin (2-4) g/dL Albumin/Globulin Ratio (1-3) Beta HCG, Quant mIU/mL Influenza A (Rapid) Pending Influenza B (Rapid) Pending Result Diagrams: 01/05/19 21:58 01/05/19 21:58 Lab Statement: Any lab studies that have been ordered have been reviewed, and results considered in the medical decision making process. Disposition - Course Course Of Treatment: Patient complains of cough, subjective fever, SOB, congestion, vomiting, body aches times a few days. Seen at urgent care 3 days ago with similar symptoms. Diagnosed with viral syndrome, negative chest x- ray. Patient has history of asthma, uses her inhaler with mild improvement in symptoms. Denies sore throat, headache, neck stiffness, CP, abdominal pain, change in urine, change in BM. Medical medical history is asthma. Positive smoker. Vital signs within normal limits. Chest x-ray negative. Labs unremarkable. Rx for Tessalon. - Diagnoses Provider Diagnoses: Viral syndrome Discharge ED - Sign-Out/Discharge Documenting (check all that apply): Patient Departure - Discharge Plan Condition: Stable Disposition: HOME Prescriptions: Benzonatate CAP* [Tessalon 100 MG CAP*] 200 mg PO TID 6 Days #40 cap Patient Education Materials: Viral Syndrome (ED) Forms: *Work Release Referrals: No Primary Care Phys,NOPCP [Primary Care Provider] - Additional Instructions: Drink plenty of fluids. Alternate ibuprofen 600 mg with Tylenol 650 mg for 2 days for body aches. Take Tessalon Perles as directed for cough. Use her inhaler as directed. Follow-up with primary care. - Billing Disposition and Condition Condition: STABLE Disposition: Home
[2019-01-05 23:56] LABS: Influenza A Molecular NEGATIVE (Negative); Influenza B Molecular NEGATIVE (Negative)
== END 2019-01-05 23:45 | disposition home or self-care (01) ==
LOC: ED 20:29
DX: B34.9 Viral infection, unspecified (principal); J45.909 Unspecified asthma, uncomplicated; R05 Cough; R50.9 Fever, unspecified; R06.02 Shortness of breath; R09.81 Nasal congestion; F17.210 Nicotine dependence, cigarettes, uncomplicated
CPT/HCPCS: 36415; 71046; 80053; 83605; 84702; 85025; 85610; 86140; 99283; A9270-GY

== ENCOUNTER 2019-02-26 15:43 | Emergency (ER) | payer SELFPAY ==
[2019-02-26 16:52] VITALS: BP 126/82
--- NOTE | 2019-02-26 17:02 | UC ---
Throat Pain/Nasal Ronal HPI - HPI Summary HPI Summary: 28yo who has felt unwell since yesterday. States that she drank "a lot" on [place], and has felt unwell since. She has sore throat, low abdominal pain, vaginal discharge and pain with intercourse. She had oral intercourse. Same partner x 1.5 years; she does not have other partners, but she is uncertain if this is the case with her boyfriend. . Miscarriages in the past. Uncertain date of last menses, about 4 weeks ago, hx of tubal ligation - History of Current Complaint Chief Complaint: UCRespiratory Stated Complaint: COLD, FLU SYMPTOMS Time Seen by Provider: 02/26/19 16:54 Hx Obtained From: Patient Hx Last Menstrual Period: 12/28/18 Onset/Duration: Sudden Onset, Lasting Days - 2 Pain Intensity: 9 Cough: Nonproductive Associated Signs & Symptoms: Positive: Dysphagia - Allergies/Home Medications Allergies/Adverse Reactions: Allergies Allergy/AdvReac Type Severity Reaction Status Date / Time bee venom protein (honey bee) Allergy Anaphylatic Verified 02/26/19 16:52 Shock morphine Allergy Rash And Verified 02/26/19 16:52 Itching shrimp Allergy Anaphylatic Uncoded 02/26/19 16:52 Shock PMH/Surg Hx/FS Hx/Imm Hx Other History Of: Negative For: Anticoagulant Therapy - Surgical History Surgical History: Yes Surgery Procedure, Year, and Place: right ankle with plates and screws 2013. tubal ligation 2018 - Family History Known Family History: Positive: Blood Disorder - blood clots Negative: Cardiac Disease, Hypertension, Diabetes - Social History Alcohol Use: Occasionally Substance Use Type: None Smoking Status (MU): Former Smoker Type: Cigarettes Amount Used/How Often: 2 cigarettes daily Household Exposure Type: Cigarettes Review of Systems All Other Systems Reviewed And Are Negative: Yes Constitutional: Positive: Chills, Fatigue Skin: Positive: Negative Eyes: Positive: Negative ENT: Positive: Sore Throat Respiratory: Positive: Cough. Negative: Shortness Of Breath Cardiovascular: Negative: Palpitations, Chest Pain Gastrointestinal: Positive: Nausea. Negative: Vomiting, Diarrhea Genitourinary: Positive: Dysuria, Vaginal/Penile Discharge Motor: Positive: Negative Neurovascular: Positive: Negative Musculoskeletal: Positive: Myalgia Neurological: Positive: Headache Psychological: Positive: Negative Is Patient Immunocompromised?: No Physical Exam Triage Information Reviewed: Yes Appearance: Ill-Appearing, Pain Distress - mild, Obese Vital Signs: Initial Vital Signs Temp 98.9 F 02/26/19 16:49 Pulse 77 02/26/19 16:49 Resp 18 02/26/19 16:49 BP 126/82 02/26/19 16:49 Pulse Ox 100 02/26/19 16:49 Eyes: Positive: Conjunctiva Clear ENT: Positive: Pharyngeal erythema. Negative: Tonsillar swelling, Tonsillar exudate Neck: Positive: Supple, Nontender, No Lymphadenopathy Respiratory: Positive: Lungs clear, Normal breath sounds Cardiovascular: Positive: RRR, No Murmur Abdomen Description: Positive: Soft, Guarding, Other: - tenderness in suprapubic area without guarydin or rebound. Negative: CVA Tenderness (R), CVA Tenderness (L) Pelvic Exam: Positive: External Exam Normal, No Masses, Tender w/ Cervical Motion, Tender Uterus. Negative: Tender Adnexa Musculoskeletal Exam: Normal Neurological Exam: Normal Psychological Exam: Normal Skin Exam: Normal Diagnostics - Laboratory Lab Results: UA positive for leuks, and nitrites. test negative. Throat Pain/Nasal Course/Dx - Course Course Of Treatment: Discussed her concern of infection, and she is concerned about STI's because her partner has had other partners in the past without disclosure. Would like treatment on speculation for GC and Chlamydia. Swabs obtained Urine sample consistent with UTI. BV,. Trich and yeast pending. - Differential Dx/Diagnosis Differential Diagnosis/HQI/PQRI: Pharyngitis, Tonsillitis, URI, Other - STI's Provider Diagnosis: UTI (urinary tract infection), Pelvic pain Discharge ED - Sign-Out/Discharge Documenting (check all that apply): Patient Departure All imaging exams completed and their final reports reviewed: No Studies - Discharge Plan Condition: Stable Disposition: HOME Prescriptions: metroNIDAZOLE [Flagyl] 500 mg PO BID #14 tablet Nitrofurantoin Macrocrystals* [Macrodantin 100 mg*] 100 mg PO DAILY #14 cap Patient Education Materials: Urinary Tract Infection in Women (ED), Vaginitis ( ED) Referrals: No Primary Care Phys,NOPCP [Primary Care Provider] - Additional Instructions: As discussed, you have been treated with ceftriaxone and azithromycin to cover possible Chlamydia and gonorrhea. Prescriptions have been sent to the pharmacy for a urinary tract infection and also to cover possible bacterial vaginosis. Ensure high intake of fluids and rest. Culture reports will be available in 48 to 72 hours, and you will be called if a change of antibiotics is needed. - Billing Disposition and Condition Condition: STABLE Disposition: Home
[2019-02-26 17:30] LABS: Influenza A Molecular NEGATIVE (Negative); Influenza B Molecular NEGATIVE (Negative)
[2019-02-26] MEDS ORDERED: Lidocaine 1% MPF ** 5 ML VIAL IM ONE (18:05)
[2019-02-26] MEDS ORDERED: cefTRIAXone VIAL(*) 250 MG VIAL IM ONE (18:05)
[2019-02-26] MEDS ORDERED: Azithromycin TAB* 250 MG PO ONE (18:07)
[2019-03-01 13:46] LABS: Chlamydia trachomatis NAA Negative (Negative); Neisseria gonorrhoeae (GC) NAA Negative (Negative)
== END 2019-02-26 18:30 | disposition home or self-care (01) ==
LOC: UCEAST 15:43
DX: N39.0 Urinary tract infection, site not specified (principal); R10.2 Pelvic and perineal pain; J02.9 Acute pharyngitis, unspecified; R53.83 Other fatigue; R05 Cough; R11.0 Nausea; R51 Headache; Z87.891 Personal history of nicotine dependence; Z91.030 Bee allergy status; Z88.5 Allergy status to narcotic agent; Z91.013 Allergy to seafood
CPT/HCPCS: 81002; 84702; 87077; 87086; 87186; 87480; 87491; 87510; 87591; 87651; 87661; 96372; 99212; A9270-GY; G0463; J0696

== ENCOUNTER 2019-05-22 13:11 | Emergency (ER) | payer SELFPAY ==
[2019-05-22] MEDS ORDERED: Ketorolac INJ* 30 MG/ML 1 ML VIAL IV PUSH ONE (13:31)
[2019-05-22 13:52] LABS: ABS Eosinophils 0.1 10^3/ul (0-0.6); ABS Lymphocytes 1.1 10^3/ul (1.0-4.8); ABS Monocytes 0.9 10^3/ul (0-0.8); ABS Neutrophils 7.3 10^3/ul (1.5-7.7); Eosinophil % 0.6 %; Hematocrit 37 % (35-47); Hemoglobin 12.6 g/dL (12.0-16.0); Mean Corpuscular HGB Conc 34 g/dL (31-36); Mean Corpuscular Hemoglobin 29 pg (27-31); Mean Corpuscular Volume 86 fL (80-97); Mean Platelet Volume 7.9 fL (7.4-10.4); Platelet Count 287 10^3/uL (150-450); Red Blood Count 4.32 10^6 /uL (3.70-4.87); Red Cell Distribution Width 14 % (10-15); White Blood Count 9.4 10^3/uL (3.5-10.8)
--- NOTE | 2019-05-22 14:10 | ED ---
Abdominal Pain/Female - HPI Summary HPI Summary: Pt. is a 28 y.o female who present to the ER for lower abd. pain x 2-3 days. Pain is cramping in nature and is intermittent. Pt. denies vaginal bleeding or discharge. Denies urinary sxs, N/V, cough, fever. Sxs are moderate in severity. No current modifying factors. - History of Current Complaint Chief Complaint: EDAbdPain Stated Complaint: ABD PAIN PER PT Time Seen by Provider: 05/22/19 13:21 Hx Obtained From: Patient Hx Last Menstrual Period: 12/28/18 Pain Intensity: 10 Allergies/Adverse Reactions: Allergies Allergy/AdvReac Type Severity Reaction Status Date / Time bee venom protein (honey bee) Allergy Anaphylatic Verified 05/22/19 13:17 Shock morphine Allergy Rash And Verified 05/22/19 13:17 Itching shrimp Allergy Anaphylatic Uncoded 05/22/19 13:17 Shock Home Medications: Home Medications Nitrofurantoin Macrocrystals* [Macrodantin 100 mg*] 100 mg PO DAILY #14 cap 05/13 [Rx] metroNIDAZOLE [Flagyl] 500 mg PO BID #14 tablet 02/26/19 [Rx] Dicyclomine CAP* [Bentyl CAP*] 10 mg PO TID PRN #12 cap 05/22/19 [Rx] PMH/Surg Hx/FS Hx/Imm Hx Previously Healthy: Yes Endocrine/Hematology History: Denies: Hx Anticoagulant Therapy, Hx Blood Disorders - blood clots, Hx Diabetes Cardiovascular History: Denies: Hx Hypertension Respiratory History: Reports: Hx Asthma History: Reports: Other Problems/Disorders - multiple miscarriages Sensory History: Denies: Hx Eye Prosthesis, Hx Legally Blind, Hx Deafness Opthamlomology History: Denies: Hx Eye Prosthesis, Hx Legally Blind Neurological History: Reports: Hx Migraine - while Psychiatric History: Reports: Other Psychiatric Issues/Disorders - unknown etiology - follows w/ MH - Surgical History Surgery Procedure, Year, and Place: right ankle with plates and screws 2013. tubal ligation 2018 Infectious Disease History: No Infectious Disease History: Denies: Traveled Outside the [place] in Last 30 Days - Family History Known Family History: Positive: Blood Disorder - blood clots, Non-Contributory Negative: Cardiac Disease, Hypertension, Diabetes - Social History Occupation: Unemployed Lives: With Family Alcohol Use: Occasionally Hx Substance Use: No Substance Use Type: Reports: None Hx Tobacco Use: Yes Smoking Status (MU): Former Smoker Type: Cigarettes Amount Used/How Often: 2 cigarettes daily Review of Systems Constitutional: Negative Negative: Fever, Chills Cardiovascular: Negative Respiratory: Negative Positive: Abdominal Pain. Negative: Vomiting, Diarrhea, Nausea Genitourinary: Negative Negative: dysuria, flank pain, hematuria Neurological/Mental Status: Negative All Other Systems Reviewed And Are Negative: Yes Physical Exam Triage Information Reviewed: Yes Vital Signs On Initial Exam: Initial Vitals Temp Pulse Resp BP Pulse Ox 98.4 F 116 15 168/102 95 05/22/19 13:13 05/22/19 13:13 05/22/19 13:13 05/22/19 13:13 05/22/19 13:13 Vital Signs Reviewed: Yes Appearance: Positive: Pain Distress - Pt. lying in bed crying, appears in pain but nontoxic. Skin: Positive: Warm, Dry Head/Face: Positive: Normal Head/Face Inspection Eyes: Positive: Normal, EOMI, NICOLE Neck: Positive: Supple Respiratory/Lung Sounds: Positive: Clear to Auscultation, Breath Sounds Present Cardiovascular: Positive: Normal, RRR Abdomen Description: Positive: Other: - Obese. Abd. is soft with suprapubic tenderness. No RLQ tenderness. No CVA tenderness bilaterally. Neurological: Positive: Normal, CN Intact II-III Psychiatric: Positive: Affect/Mood Appropriate Procedures - Sedation Patient Received Moderate/Deep Sedation with Procedure: No Diagnostics - Vital Signs Vital Signs Temp Pulse Resp BP Pulse Ox 05/22/19 13:13 98.4 F 116 15 168/102 95 - Laboratory Lab Results: Lab Results 05/22/19 Range/Units 13:41 WBC 9.4 (3.5-10.8) 10^3/uL RBC 4.32 (3.70-4.87) 10^6 /uL Hgb 12.6 (12.0-16.0) g/dL Hct 37 (35-47) % MCV 86 (80-97) fL MCH 29 (27-31) pg MCHC 34 (31-36) g/dL RDW 14 (10-15) % Plt Count 287 (150-450) 10^3/uL MPV 7.9 (7.4-10.4) fL Neut % (Auto) 77.9 % Lymph % (Auto) 12.0 % [place] % (Auto) 9.1 % Eos % (Auto) 0.6 % Baso % (Auto) 0.4 % Absolute Neuts (auto) 7.3 (1.5-7.7) 10^3/ul Absolute Lymphs (auto) 1.1 (1.0-4.8) 10^3/ul Absolute Monos (auto) 0.9 H (0-0.8) 10^3/ul Absolute Eos (auto) 0.1 (0-0.6) 10^3/ul Absolute Basos (auto) 0.0 (0-0.2) 10^3/ul Absolute Nucleated RBC 0.0 10^3/ul Nucleated RBC % 0.0 Result Diagrams: 05/22/19 13:41 05/22/19 13:41 Lab Statement: Any lab studies that have been ordered have been reviewed, and results considered in the medical decision making process. Abdominal Pain Fem Course/Dx - Course Course Of Treatment: Pt. presenting with severe lower abd. pain. She is afebrile. IV toradol given for pain. Will obtain labs and pelvic u/s to evulate ovarian flow. Labs unremarkable other than mildly elevated crp. U/A negative for infection. Pelvic exam unremarkable, cultures pending. On re-exam pt. notes she is still having signficiant intermittent pain. pt. notes she had appendicitis as a child and was treated with antibiotic. Will obtain CT scan to evaluate appendix. CT per radiology: IMPRESSION: Diffuse submucosal edema in the right colon and transverse colon less. conspicuous in the descending colon suggestive of colitis. The appendix is visualized and. is otherwise unremarkable. No free fluid is noted in the pelvis. Results discussed. Pt. dc home. Advised tylenol or motrin for pain as directed. Increase fluids and rest. Return to ER if sxs change or worsen. - Diagnoses Differential Diagnosis: Positive: Appendicitis, Ovarian Cyst, Pelvic Inflammatory Disease, , Renal Colic, Urinary Tract Infection Provider Diagnoses: Abdominal pain Discharge ED - Sign-Out/Discharge Documenting (check all that apply): Patient Departure - Discharge Plan Condition: Improved Disposition: HOME Prescriptions: Dicyclomine CAP* [Bentyl CAP*] 10 mg PO TID PRN #12 cap PRN Reason: Pain - Mild Patient Education Materials: Colitis (ED) Referrals: [facility] [Outside] Additional Instructions: Follow up with the [facility] is symptoms persist Increase fluids and rest Tylenol or Motrin for pain as directed Return to ER for increased pain, fever, or if concerned - Billing Disposition and Condition Condition: IMPROVED Disposition: Home - Attestation Statements Provider Attestation: I was available for consultation for this patient. I did not evaluate the patient or participate in any medical decision making or disposition decisions unless I am specifically named in the chart as having consulted on the patient. If I have consulted on the patient, please see my own ED note on the patient encounter. Janessa Kate MD
[2019-05-22 14:14] LABS: ALT 21 U/L (7-52); AST 15 U/L (13-39); Albumin 4.3 g/dL (3.2-5.2); Albumin/Globulin Ratio 1.3 (1-3); Alkaline Phosphatase 73 U/L (34-104); Anion Gap 7 mmol/L (2-11); BUN/Creatinine Ratio 16.7 (8-20); Blood Urea Nitrogen 12 mg/dL (6-24); C Reactive Protein 22.54 mg/L (<8.01); CO2 Carbon Dioxide 25 mmol/L (22-32); Calcium 9.2 mg/dL (8.6-10.3); Chloride 104 mmol/L (101-111); EGFR African American 115.1 (>60); EGFR Non-African American 95.1 (>60); Globulin 3.2 g/dL (2-4); Glucose 97 mg/dL (70-100); Potassium 3.6 mmol/L (3.5-5.0); Sodium 136 mmol/L (135-145); Total Protein 7.5 g/dL (6.4-8.9)
[2019-05-22 14:20] LABS: HCG Pregnancy < 0.60 mIU/mL
[2019-05-22 15:32] LABS: Urine Appearance Cloudy; Urine Bilirubin Negative (Negative); Urine Blood Negative (Negative); Urine Color Yellow; Urine Glucose Negative (Negative); Urine Ketones Negative (Negative); Urine Nitrite Negative (Negative); Urine Protein Negative (Negative); Urine Specific Gravity 1.024 (1.010-1.030); Urine Urobilinogen Negative (Negative)
[2019-05-22 15:38] LABS: Urine Bacteria Absent (Absent); Urine Red Blood Cell Absent (Absent); Urine Squamous Epithelial Cell Present (Absent); Urine White Blood Cell Trace(0-5/hpf) (Absent)
[2019-05-22] MEDS ORDERED: Iohexol 300* (CONTRAST) 10 ML SDV IV ONE (15:43)
[2019-05-22 17:07] VITALS: BP 120/77
--- NOTE | 2019-05-24 07:57 | ED ---
Imaging and Labs Follow Up Follow Up Type: Labs/Cultures Labs/Culture Result: Vaginal swab returns showing Positive Gardnerella, negative Any. Patient Communication/Plan: PT contacted at 08. These results were discusses and it was determined that the patient is asymptomatic for Bacterial vaginosis. This is likely benign philippe. Nothing further at this time. Provider Diagnoses: Abdominal pain
[2019-05-24 13:46] LABS: Chlamydia trachomatis NAA Negative (Negative); Neisseria gonorrhoeae (GC) NAA Negative (Negative)
[2019-05-24 14:01] LABS: Trichomonas vag NAA Female Negative (Negative)
== END 2019-05-22 17:05 | disposition home or self-care (01) ==
LOC: ED 13:11
DX: R10.9 Unspecified abdominal pain (principal); Z79.899 Other long term (current) drug therapy; Z87.891 Personal history of nicotine dependence; Z88.6 Allergy status to analgesic agent
CPT/HCPCS: 36415; 74177; 76856; 80053; 81003; 81015; 84702; 85025; 86140; 87086; 87480; 87491; 87510; 87591; 87661; 96374; 99283; J1885; Q9967

== ENCOUNTER 2019-05-25 10:55 | Observation (INO) | payer OTHER ==
--- NOTE | 2019-05-25 11:01 | ED ---
Abdominal Pain/Female - HPI Summary HPI Summary: 28-year-old female presents to the emergency department today which chief complaint of 10 out of 10 diffuse cramping lower abdominal pain which she has had for 3 days. Patient was seen here in this emergency department and diagnosed with colitis 3 days prior. Patient endorses 20 bouts of diarrhea daily for 3 days. Patient was sent here by her PCP after telling them her abdominal pain has increased today. Patient also endorses a new bright red blood per rectum with dark clots. Patient has a significant family history of Crohn's disease in her cousins. At this time patient is afebrile and denies recent travel, chest pain, pain with urination, rash, vomiting. - History of Current Complaint Chief Complaint: EDAbdPain Stated Complaint: ABDOMINAL PAIN PER PT Hx Obtained From: Patient Hx Last Menstrual Period: 12/28/18 Onset/Duration: Gradual Onset Timing: Constant Severity Initially: Severe Severity Currently: Severe Pain Intensity: 10 Pain Scale Used: 0-10 Numeric Location: Diffuse, Discrete At: RLQ, Discrete At: LLQ Radiates: No Character: Cramping Aggravating Factor(s): Nothing Alleviating Factor(s): Nothing Associated Signs and Symptoms: Positive: Nausea, Diarrhea. Negative: Fever, Constipation Allergies/Adverse Reactions: Allergies Allergy/AdvReac Type Severity Reaction Status Date / Time bee venom protein (honey bee) Allergy Anaphylatic Verified 05/25/19 10:59 Shock morphine Allergy Rash And Verified 05/25/19 10:59 Itching shrimp Allergy Anaphylatic Uncoded 05/22/19 13:17 Shock Home Medications: Home Medications Nitrofurantoin Macrocrystals* [Macrodantin 100 mg*] 100 mg PO DAILY #14 cap 05/13 [Rx Confirmed 05/25/19] metroNIDAZOLE [Flagyl] 500 mg PO BID #14 tablet 02/26/19 [Rx Confirmed 05/25/19] Acetaminophen TAB* [Tylenol TAB*] 325 mg PO Q4H PRN 05/25/19 [History Confirmed 05/25/19] Ibuprofen TAB* [Advil TAB*] 200 mg PO Q6H PRN 05/25/19 [History Confirmed ] Naproxen Sodium [Aleve] 220 mg PO DAILY PRN 05/25/19 [History Confirmed 05/25/19 ] PMH/Surg Hx/FS Hx/Imm Hx Endocrine/Hematology History: Denies: Hx Anticoagulant Therapy, Hx Blood Disorders - blood clots, Hx Diabetes Cardiovascular History: Denies: Hx Hypertension Respiratory History: Reports: Hx Asthma History: Reports: Other Problems/Disorders - multiple miscarriages Denies: Hx Renal Disease Sensory History: Denies: Hx Eye Prosthesis, Hx Legally Blind, Hx Deafness Opthamlomology History: Denies: Hx Eye Prosthesis, Hx Legally Blind Neurological History: Reports: Hx Migraine - while Psychiatric History: Reports: Other Psychiatric Issues/Disorders - unknown etiology - follows w/ MH - Surgical History Surgery Procedure, Year, and Place: right ankle with plates and screws 2013. tubal ligation 2018 Infectious Disease History: No Infectious Disease History: Denies: Traveled Outside the [place] in Last 30 Days - Family History Known Family History: Positive: Blood Disorder - blood clots, Non-Contributory Negative: Cardiac Disease, Hypertension, Diabetes - Social History Alcohol Use: Occasionally Hx Substance Use: No Substance Use Type: Reports: None Hx Tobacco Use: Yes Smoking Status (MU): Former Smoker Type: Cigarettes Amount Used/How Often: 2 cigarettes daily Review of Systems Positive: Fatigue Eyes: Negative ENT: Negative Cardiovascular: Negative Respiratory: Negative Positive: Abdominal Pain, Diarrhea, Nausea Genitourinary: Negative Musculoskeletal: Negative Skin: Negative Neurological/Mental Status: Negative Psychological: Normal All Other Systems Reviewed And Are Negative: Yes Physical Exam - Summary Physical Exam Summary: Patient appears to be in mild pain distress. Inspection the abdomen reveals no masses or ecchymosis however does appear distended. Patient endorses pain with palpation of the lower abdomen however she has no guarding, rebound tenderness or rigidity. Auscultation reveals borborygmi. Triage Information Reviewed: Yes Vital Signs On Initial Exam: Initial Vitals Temp Pulse Resp BP Pulse Ox 97.3 F 90 16 115/91 99 05/25/19 10:57 05/25/19 10:57 05/25/19 10:57 05/25/19 10:57 05/25/19 10:57 Vital Signs Reviewed: Yes Appearance: Positive: Well-Appearing, Well-Nourished, Pain Distress, Obese Skin: Positive: Warm, Skin Color Reflects Adequate Perfusion Eyes: Positive: EOMI, NICOLE ENT: Positive: Hearing grossly normal Respiratory/Lung Sounds: Positive: Clear to Auscultation, Breath Sounds Present Cardiovascular: Positive: RRR, S1, S2 Abdomen Description: Positive: Soft. Negative: Nontender, Distended, Guarding Musculoskeletal: Positive: Strength/ROM Intact Neurological: Positive: Sensory/Motor Intact, Alert, Oriented to Person Place, Time, Normal Gait, Facial Symmetry, Speech Normal Psychiatric: Positive: Normal, Affect/Mood Appropriate AVPU Assessment: Alert Procedures - Sedation Patient Received Moderate/Deep Sedation with Procedure: No Diagnostics - Vital Signs Vital Signs Temp Pulse Resp BP Pulse Ox 05/25/19 10:57 97.3 F 90 16 115/91 99 - Laboratory Result Diagrams: 05/25/19 11:24 05/25/19 11:24 Lab Statement: Any lab studies that have been ordered have been reviewed, and results considered in the medical decision making process. Abdominal Pain Fem Course/Dx - Course Course Of Treatment: Patient was evaluated in the emergency department today for increased abdominal pain the previous diagnosis of colitis. Vitals noted patient afebrile. Patient was given oxycodone for pain and Zofran for nausea. Patient was given IV fluids for some dehydration due to multiple bouts of diarrhea. There is no leukocytosis however there is elevated CRP at 82.7. This is consistent with patient's previous diagnosis of colitis. There is no evidence of anemia, electrolyte disturbance, renal dysfunction. Urinalysis returned contaminated the patient is a symptomatic for UTI. Stool sample was obtained which had significant amounts of gross blood. Stool sample returned showing negative C. difficile positive occult blood. GI, Dr. Clemons Was Consulted Who Suggested Giving the Patient 40mg solumedrol as patient may be experiencing new onset inflammatory bowel disease. He wished the patient to be admitted for a flexible sigmoidoscopy in the morning. Hospitalist, Dr. Donahue consulted for admission of the patient with a diagnosis of colitis and rectal bleeding. Dr. Donahue agrees. Pt admitted to [facility]. - Diagnoses Differential Diagnosis: Positive: Appendicitis, Constipation, Diverticulitis, Peptic Ulcer Disease, Other - Infectious colitis, inflammatory bowel disease Provider Diagnoses: Abdominal pain, Diarrhea Discharge ED - Sign-Out/Discharge Documenting (check all that apply): Patient Departure - Discharge Plan Condition: Stable Disposition: ADMITTED TO [facility] Referrals: No Primary Care Phys,NOPCP [Primary Care Provider] - - Billing Disposition and Condition Condition: STABLE Disposition: Admitted to [facility]
[2019-05-25] MEDS ORDERED: NS 0.9% 1000 ML** 2,000 ML IV ONE (11:15)
[2019-05-25] MEDS ORDERED: Ondansetron INJ* 2 MG/ML VIAL IV ONE (11:15)
--- OUTSIDE RECORDS SUMMARY | 2019-05-25 11:16 | XMS REPORT | Continuity of Care Document ---
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
--- OUTSIDE RECORDS SUMMARY | 2019-05-25 11:16 | XMS REPORT | Continuity of Care Document ---
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
[2019-05-25] MEDS ORDERED: oxyCODONE TAB* 5 MG TAB PO ONE ×2 (11:21→14:34)
[2019-05-25 11:36] LABS: ABS Basophils 0.1 10^3/ul (0-0.2); ABS Eosinophils 0.1 10^3/ul (0-0.6); ABS Lymphocytes 1.3 10^3/ul (1.0-4.8); ABS Monocytes 1.3 10^3/ul (0-0.8); ABS Neutrophils 5.3 10^3/ul (1.5-7.7); Eosinophil % 1.7 %; Hematocrit 38 % (35-47); Hemoglobin 12.7 g/dL (12.0-16.0); Lymphocyte % 16.3 %; Mean Corpuscular HGB Conc 34 g/dL (31-36); Mean Corpuscular Hemoglobin 29 pg (27-31); Mean Corpuscular Volume 87 fL (80-97); Mean Platelet Volume 7.9 fL (7.4-10.4); Platelet Count 300 10^3/uL (150-450); Red Blood Count 4.35 10^6 /uL (3.70-4.87); Red Cell Distribution Width 15 % (10-15); White Blood Count 8.1 10^3/uL (3.5-10.8)
[2019-05-25 11:54] LABS: ALT 24 U/L (7-52); AST 19 U/L (13-39); Albumin/Globulin Ratio 1.1 (1-3); Alkaline Phosphatase 69 U/L (34-104); Anion Gap 8 mmol/L (2-11); BUN/Creatinine Ratio 18.3 (8-20); Blood Urea Nitrogen 13 mg/dL (6-24); C Reactive Protein 82.73 mg/L (<8.01); CO2 Carbon Dioxide 24 mmol/L (22-32); Calcium 9.4 mg/dL (8.6-10.3); Chloride 105 mmol/L (101-111); EGFR Non-African American 96.7 (>60); Globulin 3.5 g/dL (2-4); Glucose 100 mg/dL (70-100); Potassium 3.6 mmol/L (3.5-5.0); Sodium 137 mmol/L (135-145); Total Protein 7.5 g/dL (6.4-8.9)
[2019-05-25 11:59] LABS: HCG Pregnancy 0.94 mIU/mL
[2019-05-25 14:45] LABS: Urine Appearance Cloudy; Urine Bilirubin Negative (Negative); Urine Blood Negative (Negative); Urine Color Amber; Urine Glucose Negative (Negative); Urine Ketones Negative (Negative); Urine Nitrite Negative (Negative); Urine Protein Negative (Negative); Urine Specific Gravity 1.032 (1.010-1.030); Urine Urobilinogen Negative (Negative)
[2019-05-25 14:49] LABS: Urine Bacteria 1+ (Absent); Urine Red Blood Cell Absent (Absent); Urine Squamous Epithelial Cell Present (Absent); Urine White Blood Cell 3+(>20/hpf) (Absent)
[2019-05-25] MEDS ORDERED: methylPREDNISolone SOD 40 MG* 1 ML VIAL IV ONE (17:10)
[2019-05-25] MEDS ORDERED: Lactated Ringers 1000 ML Bag* 1,000 ML IV SCH (18:00)
[2019-05-25] MEDS ORDERED: Albuterol 2.5 MG/3 ML NEB.SOL* (0.083%) INH PRN (18:01)
[2019-05-25] MEDS: Ondansetron INJ* 2 MG/ML VIAL IV PRN (18:56)
[2019-05-25] MEDS: oxyCODONE TAB* 5 MG TAB PO PRN ×2 (18:56→23:28)
--- NOTE | 2019-05-25 20:28 | HP ---
CC: Dr. Juvencio Griffin", [facility] * ADMISSION HISTORY AND PHYSICAL: DATE OF ADMISSION: 05/25/19 PRIMARY CARE PROVIDER: Dr. Jim Griffin of [facility]. MY ATTENDING WHILE IN THE HOSPITAL: Dr. Joyce Hastings.* (DICTATED BY ANKUSH TROY) CHIEF COMPLAINT: Severe abdominal pain x3 days. HISTORY OF PRESENT ILLNESS: Ms. Najera is a 28-year-old female with past medical history significant for asthma and multiple miscarriages, who presents to the emergency department after 3 days of severe abdominal pain. She was seen initially on the first day with pain that was about 7/[address] a [address] scan, which showed colitis in the right and transverse colon. She was sent home on Flagyl and Macrobid as well as Bentyl. The patient on the day after she came to the emergency department states she was having about 20 bowel movements daily and started having small amounts of blood in her stool. The patient had no chest pain, shortness of breath, dizziness. No nausea or vomiting. The patient approximately 3 weeks ago had a large aphthous ulcer on her left cheek, which has resolved by this point. The patient has had on and off abdominal pain, which can be severe for 3 years and states she has been in and out of emergency departments and has never received a definitive diagnosis. She states that at some point she was told that she had diabetes and they suspected she had a thyroid disease, but this was never followed up on. The patient has had weight fluctuating with weight loss and weight gain. The patient has had also intermittent fevers and the patient has never had hematochezia before. The patient has several cousins who have Crohn's disease and a sister with IBS. In the emergency department, the patient was found to be tachycardic. The patient was not anemic, though the patient's case was discussed with Dr. Clemons of Gastroenterology, who recommended steroid treatment and admission for flexible sigmoidoscopy in the morning. PAST MEDICAL HISTORY: Asthma and multiple miscarriages. PAST SURGICAL HISTORY: Tubal ligation in 2018, right ankle ORIF in 2014. MEDICATIONS: Albuterol inhaler p.r.n. ALLERGIES: MORPHINE, HONEY BEE VENOM, and SHRIMP. FAMILY HISTORY: The patient's mother is alive, has diabetes, had a history of breast cancer, and has recurrent diverticulitis. The patient's father's history is unknown. The patient has 2 cousins with Crohn's disease. The patient has a sister with IBS and 3 brothers who are healthy. SOCIAL HISTORY: The patient smokes about 1 to 2 times a month and has for her adult life. The patient drinks alcohol rarely. The patient denies illicit drug use. The patient worked at [employer] up until several days ago. The patient is not , but has 4 children. REVIEW OF SYSTEMS: A 10-point review of systems was reviewed and is negative except as above in the HPI. PHYSICAL EXAMINATION GENERAL: The patient is a 28-year-old female, who appears stated age and sitting comfortably in bed, in no acute distress. VITAL SIGNS: At the time of evaluation, temperature 97.3, pulse rate 82, respiratory rate 20, oxygen saturation 99% on room air, blood pressure 127/83. HEENT: Head: Normocephalic, atraumatic. Sclerae anicteric. No conjunctival injection. Nasal mucosa moist. Oral mucosa moist. No pharyngeal erythema, discharge, or exudate. NECK: Supple, nontender. No lymphadenopathy. No carotid bruits auscultated. No JVD. RESPIRATORY: Clear to auscultation bilaterally. No wheezes, rales, or rhonchi. Good air exchange bilaterally. CARDIAC: Regular rate and rhythm. No clicks, murmurs, gallops, or rubs. Pulses are 2+ in the bilateral dorsalis pedis, posterior tibialis, and radial areas. ABDOMEN: Soft, nontender, nondistended. Bowel sounds present and normoactive in all 4 quadrants. No hepatosplenomegaly. No abdominal bruits auscultated. No hepatojugular reflux. GENITOURINARY: No suprapubic or CVA tenderness. NEURO: Cranial nerves II through XII intact. No focal deficits. Alert and oriented x3. PSYCHIATRIC: Pleasant and cooperative. SKIN: Clean, dry, and intact. No rash. DIAGNOSTIC STUDIES/LAB DATA: White blood cell count 8.1, hemoglobin 12.7, platelet count 300. Sodium 137, potassium 3.6, chloride 105, carbon dioxide 24 , anion gap 8, BUN 13, creatinine 0.71, glucose 100, lactic acid 1.0, calcium 9.4, magnesium 2.0. Bilirubin 0.3, AST 19, ALT 24, alkaline phosphatase 69. CRP 82.73. Protein 7.5, albumin 4.0, globulin 3.5. Lipase less than 10. Beta hCG 0.94. Urine: Otilia, cloudy, high specific gravity, 3+ white blood cells, 1 + bacteria. Studies: None. Abdomen and pelvis CT from 05/22/19 read as diffuse submucosal edema of the right colon, transverse colon, less extent ascending colon suggestive of colitis. Appendix visualized and otherwise unremarkable. No free fluid noted in the pelvis. Hepatic steatosis. ASSESSMENT AND PLAN: Impression: Ms. Najera is a 28-year-old female with past medical history significant for intermittent asthma, who presents to the emergency department with 3 days of severe abdominal pain and hematochezia, who will be admitted to the hospital for evaluation of new-onset inflammatory bowel disease. 1. Colitis, concern for inflammatory bowel disease. The patient has a history consistent with new-onset inflammatory bowel disease with 3 years of on and off abdominal pain with no definitive diagnosis, with new-onset hematochezia. The patient also had aphthous ulcers and has had weight fluctuations. The patient was given 1 dose of Solu-Medrol in the emergency department per the recommendation of Gastroenterology. The patient will be seen by Gastroenterology in the morning for a flexible sigmoidoscopy and repeat steroid dosing. The patient will have pain control with oxycodone, though she has very well controlled pain at this point. The patient will be given fluids. The patient will be n.p.o. after midnight and have a clear liquid diet until then. There is low concern that this represents an infectious colitis or ischemic colitis given her lack of risk factors; however, direct visualization and biopsy will help to clarify this further. The patient did have a negative C. diff test. 2. Mild intermittent asthma. The patient will have nebulizers while inpatient. The patient is not symptomatic at this time. 3. DVT prophylaxis: SCDs and ambulation. 4. FEN: The patient will have clear liquids and n.p.o. after midnight. 5. Disposition: The patient is admitted to the hospital to observation. TIME SPENT: Approximately 60 minutes was spent on the admission of this patient , 30 of which was spent [id number] with the patient obtaining history and physical and discussing treatment plan. This plan was discussed with my attending, Dr. Joyce Hastings, and she is in agreement. ANKUSH TROY [id number]/[facility] #: [id number] STEPH
[2019-05-25] MEDS: Acetaminophen TAB* 325 MG PO PRN (20:45)
[2019-05-26 05:30] LABS: ABS Monocytes 0.5 10^3/ul (0-0.8); ABS Neutrophils 6.2 10^3/ul (1.5-7.7); Hematocrit 33 % (35-47); Hemoglobin 11.1 g/dL (12.0-16.0); Lymphocyte % 13.4 %; Mean Corpuscular HGB Conc 34 g/dL (31-36); Mean Corpuscular Hemoglobin 29 pg (27-31); Mean Corpuscular Volume 86 fL (80-97); Mean Platelet Volume 7.5 fL (7.4-10.4); Platelet Count 274 10^3/uL (150-450); Red Blood Count 3.81 10^6 /uL (3.70-4.87); Red Cell Distribution Width 14 % (10-15); White Blood Count 7.7 10^3/uL (3.5-10.8)
[2019-05-26 05:44] LABS: BUN/Creatinine Ratio 9.7 (8-20); Calcium 8.8 mg/dL (8.6-10.3); EGFR African American 136.8 (>60); Potassium 3.9 mmol/L (3.5-5.0)
[2019-05-26] MEDS: oxyCODONE TAB* 5 MG TAB PO PRN ×2 (06:02→10:14)
[2019-05-26] MEDS: Ondansetron INJ* 2 MG/ML VIAL IV PRN (06:02)
[2019-05-26] MEDS: Acetaminophen TAB* 325 MG PO PRN (07:33)
[2019-05-26] MEDS ORDERED: PROCHLORPERAZINE INJ 5 MG/ML 2 ML VIAL IV PRN (09:52)
[2019-05-26 11:36] VITALS: BP 129/78
--- NOTE | 2019-05-26 18:18 | DS ---
CC: Dr. Jim Griffin, [facility] * DISCHARGE SUMMARY: DATE OF ADMISSION: 05/25/19 DATE OF DISCHARGE: 05/26/19 PRIMARY CARE PROVIDER: Dr. Jim Griffin of [facility]. MY ATTENDING WHILE IN THE HOSPITAL: Dr. Joyce Hastings.* (DICTATED BY ANKUSH TROY) PRIMARY DISCHARGE DIAGNOSIS: Salmonella gastroenteritis. SECONDARY DISCHARGE DIAGNOSIS: Mild intermittent asthma. STUDIES DONE WHILE IN THE HOSPITAL: None. MEDICATIONS AT DISCHARGE: 1. Tylenol 650 mg p.o. q.6 hours as needed. 2. Ciprofloxacin 500 mg p.o. q.12 hours x9 doses. 3. Zofran 4 mg p.o. q.6 hours as needed. 4. Oxycodone 5 mg p.o. q.4 hours as needed, 12 doses dispensed. 5. Albuterol MDI. New medications at discharge: All. Medications discontinued at discharge: 1. Metronidazole 500 mg p.o. b.i.d. 2. Nitrofurantoin 100 mg p.o. daily. HOSPITAL COURSE: This is a brief summary of the patient's presentation. For more details, please see the history and physical from this author on 05/25/19. In brief, the patient is a 28-year-old female with past medical history significant for the above, who presented to the emergency department after 3 days of severe abdominal pain, which she was initially diagnosed with colitis in the emergency department, but was sent home with symptomatic care. She then developed hematochezia and up to 20 bowel movements a day and came back to the emergency department and was admitted for concern for inflammatory bowel disease given the patient has had intermittent abdominal pain on and off for years and a large aphthous ulcer in her mouth 3 weeks before concerning for Crohn's disease. The patient does have a family history of Crohn's disease as well; however, the patient did have a C. diff test, Shiga toxin stool study which was negative and a stool culture which ended up growing salmonella species. The patient was initially planned for a colonoscopy; however, this was canceled due to the presumptive diagnosis of salmonella colitis. The patient was prescribed ciprofloxacin. The patient's nausea and abdominal pain improved greatly with symptomatic treatment and she was able to tolerate a diet well and to maintain her fecal output, which had decreased significantly. The patient was stable and amenable for discharge on 04/01/20 for a followup with her primary care provider and with Gastroenterology in 4 to 6 weeks for determination for the need of her underlying pathology. The patient on the day of discharge remembered that approximately 2 days before her symptoms began she did take 1 bite of chicken which she found to be undercooked that she had forgotten about on admission. PHYSICAL EXAM ON THE DAY OF DISCHARGE: General: The patient is a 28-year-old female, who appears stated age and sitting comfortably in the bed, in no acute distress. Vital Signs: At the time of discharge, temperature 98.0, pulse rate 77, respiratory rate 17, oxygen saturation 99% on room air, blood pressure 129/ 78. HEENT: Head normocephalic, atraumatic. Sclerae anicteric. No conjunctival injection. Nasal mucosa moist. Oral mucosa moist. No pharyngeal erythema, discharge, or exudate. Neck: Supple, nontender. No lymphadenopathy. No carotid bruits auscultated. No JVD. Cardiac: Regular rate and rhythm. No clicks, murmurs, gallops, or rubs. Pulses are 2+ in the bilateral dorsalis pedis, posterior tibialis, and radial areas. Respiratory: Clear to auscultation bilaterally. No wheezes, rales, or rhonchi. Good air exchange bilaterally. Abdomen: Soft, nontender, nondistended. Bowel sounds present and normoactive in all 4 quadrants. No hepatosplenomegaly. No abdominal bruits auscultated. No hepatojugular reflux. The patient is moderately bloated. Genitourinary: No suprapubic or CVA tenderness. Skin: Clean, dry, and intact. No rash. Neuro: Cranial nerves II through XII intact. No focal deficits. Alert and oriented x3. Psychiatric: Pleasant and cooperative. DISCHARGE PLAN BY PROBLEM: 1. Salmonella colitis. Given the severity of the patient's symptoms, the patient will be treated with ciprofloxacin 500 mg p.o. b.i.d. for 5 days, a total of 10 doses. The patient received her first dose in the hospital, which she tolerated well. The patient has also been given symptomatic treatment with oxycodone and Zofran. The patient should also take Tylenol. The patient should avoid NSAIDs at this time due to hematochezia. The patient is well compensated at this time. The patient should follow up with Gastroenterology in 4 to 6 weeks for consideration of a colonoscopy if concern for underlying inflammatory bowel disease remains as the patient did have a relatively convincing story for inflammatory bowel disease before her salmonella was diagnosed. 2. Mild intermittent asthma. Continue the patient's albuterol inhaler as needed. DISPOSITION: Home. CONDITION: Stable. TIME SPENT: Approximately 60 minutes was spent on the discharge of this patient , 30 of which was spent [id number] with the patient obtaining history and physical and discussing treatment plan. ANKUSH TROY [id number]/CPS #: [id number] STEPH
[2019-05-26] MEDS ORDERED: Ciprofloxacin TAB* 500 MG PO SCH (21:00)
== END 2019-05-26 14:48 | disposition home or self-care (01) ==
LOC: ED 10:55 → SSU 17:53
PROVIDERS: ADMIT Hospitalist; ATTEND Hospitalist
DX: A02.0 Salmonella enteritis (principal); J45.20 Mild intermittent asthma, uncomplicated; R10.30 Lower abdominal pain, unspecified; R11.0 Nausea; R19.7 Diarrhea, unspecified; K62.5 Hemorrhage of anus and rectum; Z87.59 Personal history of other complications of pregnancy, childbirth and the puerperium; Z88.6 Allergy status to analgesic agent; Z79.899 Other long term (current) drug therapy; Z87.891 Personal history of nicotine dependence; Z90.710 Acquired absence of both cervix and uterus
CPT/HCPCS: 36415; 80048; 80053; 81003; 81015; 82272; 83036; 83605; 83690; 83735; 84443; 84702; 85025; 86140; 87045; 87046; 87077; 87086; 87147; 87493; 87899; 96361; 96374; 96375; 96376; 99284; A9270-GY; G0378; J0780; J2405; J2920